=== PATIENT | female | born 1950 | race Caucasian/White ===

== ENCOUNTER 2017-07-11 10:42 | Emergency (ER) | payer MEDICARE ==
[2017-07-11 10:51] VITALS: BMI 26.5
[2017-07-11 10:52] VITALS: RESP 18; TEMP 98.4
[2017-07-11] MEDS ORDERED: Oxycodone/Acetaminophen 5/325 mg Tab PO STA (11:59)
--- NOTE | 2017-07-11 11:59 | ED PDOC ---
HPI: Back Time Seen by Provider: 07/11/17 11:07 Chief Complaint (Nursing): Back Pain Chief Complaint (Provider): Back Pain History Per: Patient Additional Complaint(s): 67 yo female, PMH of HTN and DM, presents to ED for evaluation of headache, and neck pain neck that radiates into her shoulder. Pt states a ceiling tile fell on her head monday and pain increased since then. Pt taking Tylenol with minimal relief. Past Medical History Reviewed: Nursing Documentation, Vital Signs Vital Signs: Last Vital Signs Temp 98.4 F 07/11/17 10:51 Pulse 90 07/11/17 10:51 Resp 18 07/11/17 10:51 BP 146/75 07/11/17 10:51 Pulse Ox 96 07/11/17 10:51 - Medical History PMH: Asthma, COPD, HTN - Family History Family History: States: Unknown Family Hx - Living Arrangements Living Arrangements: With Family - Social History Current smoker - smoking cessation education provided: No Alcohol: None Drugs: Denies - Immunization History Hx Tetanus Toxoid Vaccination: No Hx Influenza Vaccination: No Hx Pneumococcal Vaccination: No - Home Medications Home Medications: Ambulatory Orders Medication Instructions Recorded MetFORMIN [glucoPHAGE] 500 mg PO DAILY 07/05/15 Indomethacin [Indocin] 50 mg PO Q8 PRN #30 cap 07/02/17 Metoprolol Succinate [Toprol XL] 25 mg PO DAILY 07/02/17 Cyclobenzaprine [Cyclobenzaprine 10 mg PO TID #20 tab 07/11/17 HCl] Ibuprofen [Motrin] 600 mg PO Q6 #20 tab 07/11/17 - Allergies Allergies/Adverse Reactions: Allergies Allergy/AdvReac Type Severity Reaction Status Date / Time No Known Allergies Allergy Verified 07/02/17 18:50 Review of Systems ROS Statement: Except As Marked, All Systems Reviewed And Found Negative Musculoskeletal: Positive for: Neck Pain Neurological: Positive for: Headache Physical Exam - Reviewed Nursing Documentation Reviewed: Yes Vital Signs Reviewed: Yes - Physical Exam Appears: Positive for: Well, Non-toxic, No Acute Distress Head Exam: Positive for: ATRAUMATIC, NORMAL INSPECTION, NORMOCEPHALIC Skin: Positive for: Normal Color, Warm, DRY Eye Exam: Positive for: EOMI, Normal appearance, PERRL ENT: Positive for: Normal ENT Inspection Neck: Positive for: Normal, Painless ROM Cardiovascular/Chest: Positive for: Regular Rate, Rhythm Respiratory: Positive for: CNT, Normal Breath Sounds Gastrointestinal/Abdominal: Positive for: Normal Exam, Bowel Sounds, Soft Back: Positive for: Normal Inspection Extremity: Positive for: Normal ROM Neurologic/Psych: Positive for: Alert, Oriented - ECG O2 Sat by Pulse Oximetry: 96 Medical Decision Making Medical Decision Making: medicated with percocet PO Head IMPRESSION: No acute intracranial abnormality. Mild chronic microangiopathic changes and mild age-related global parenchymal volume loss. Neck IMPRESSION: 1. No acute fracture or traumatic anterior listhesis. 2. Mild multilevel degenerative disc disease, worse at C5-6 with mild spinal canal stenosis. 3. Scattered 2-3 mm peripheral nodules in the visualized upper lobes. These may be post inflammatory in etiology however CT scan of the thorax without intravenous contrast on a nonemergent basis is recommended for complete evaluation of the lungs. Pt educated on results and demonstrated full understanding. reports feeling better on re-eval, stable for discharge Disposition - Clinical Impression Clinical Impression: Headache, Cervical strain - Patient ED Disposition Is Patient to be Admitted: No - Disposition Disposition: Routine/Home Disposition Time: 14:28 Condition: STABLE Prescriptions: Cyclobenzaprine [Cyclobenzaprine HCl] 10 mg PO TID #20 tab Ibuprofen [Motrin] 600 mg PO Q6 #20 tab Instructions: Cervical Strain (DC), Acute Headache (DC) Forms: [employer] (Ecuadorean)
--- NOTE | 2017-07-11 13:06 | CT ---
PROCEDURE: CT HEAD WITHOUT CONTRAST. HISTORY: head injury 2 days ago COMPARISON: None available. TECHNIQUE: Axial computed tomography images were obtained through the head/brain without intravenous contrast. Radiation dose: Total exam DLP = 793.15 mGy-cm. This CT exam was performed using one or more of the following dose reduction techniques: Automated exposure control, adjustment of the mA and/or kV according to patient size, and/or use of iterative reconstruction technique. FINDINGS: HEMORRHAGE: No intracranial hemorrhage. BRAIN: Iyer-white matter differentiation is preserved. There are mild chronic microangiopathic changes. There is no mass, mass effect or abnormal extra-axial fluid collection. VENTRICLES: There is mild age-related global parenchymal volume loss and proportionate enlargement of the ventricles and cortical sulci. CALVARIUM: There is no calvarial fracture or extracranial soft tissue swelling. PARANASAL SINUSES: Predominantly clear. MASTOID AIR CELLS: Predominantly clear. OTHER FINDINGS: None. IMPRESSION: No acute intracranial abnormality. Mild chronic microangiopathic changes and mild age-related global parenchymal volume loss.
--- NOTE | 2017-07-11 13:14 | CT ---
PROCEDURE: CT Cervical Spine without contrast HISTORY: Head injury COMPARISON: None available. TECHNIQUE: Axial computed tomography images were obtained of the cervical spine without the use of intravenous contrast. Coronal and sagittal reformatted images were created and reviewed. Radiation dose: Total exam DLP = 515.27 mGy-cm. This CT exam was performed using one or more of the following dose reduction techniques: Automated exposure control, adjustment of the mA and/or kV according to patient size, and/or use of iterative reconstruction technique. FINDINGS: VERTEBRAE: There is reversal of normal cervical lordosis with moderate cervical kyphosis centered at C5-6. There is 4 mm degenerative anterior listhesis of C4 on C5. Vertebral height is normal. There is no acute fracture or traumatic anterior listhesis. The craniocervical junction is normal. There is mild degenerative osteoarthrosis at the atlantoaxial joint. DISCS/SPINAL CANAL/NEURAL FORAMINA: There is multilevel degenerative disc disease due to combination of disc osteophyte complexes, uncovertebral joint hypertrophy and multilevel facet arthropathy, worse at C5-6 with mild bilateral neural foraminal stenosis and mild spinal canal stenosis. Discs heights are grossly preserved. PARASPINAL SOFT TISSUES: There is no prevertebral soft tissue thickening. The paraspinous soft tissues are normal. OTHER FINDINGS: There are scattered 2-3 mm peripheral nodules in the visualized upper lobes. No apical pneumothorax. IMPRESSION: 1. No acute fracture or traumatic anterior listhesis. 2. Mild multilevel degenerative disc disease, worse at C5-6 with mild spinal canal stenosis. 3. Scattered 2-3 mm peripheral nodules in the visualized upper lobes. These may be post inflammatory in etiology however CT scan of the thorax without intravenous contrast on a nonemergent basis is recommended for complete evaluation of the lungs.
[2017-07-11 14:47] VITALS: BP 129/78; PULSE 82; O2SAT 99
== END 2017-07-11 14:47 | disposition home or self-care (01) ==
LOC: H.ER 10:42
DX: R51 Headache (principal); S16.1XXA Strain of muscle, fascia and tendon at neck level, initial encounter; W22.8XXA Striking against or struck by other objects, initial encounter; Y92.89 Other specified places as the place of occurrence of the external cause; Z79.84 Long term (current) use of oral hypoglycemic drugs

== ENCOUNTER 2017-08-19 09:48 | Emergency (ER) | payer MEDICARE ==
[2017-08-19 09:50] VITALS: BMI 26.4
[2017-08-19 09:53] VITALS: TEMP 98.5
[2017-08-19] MEDS ORDERED: Albuterol-Ipratrop 3 mg / 0.5 (3 ml) UD INH STA (10:05)
[2017-08-19] MEDS ORDERED: Albuterol-Ipratrop 3 mg / 0.5 (3 ml) UD ONE (10:26)
[2017-08-19 11:31] VITALS: O2SAT 98
--- NOTE | 2017-08-19 12:01 | CARD ---
APPROVED REPORT EKG Measurement Heart [id number] <Conclusion> Normal sinus rhythm Normal ECG
--- NOTE | 2017-08-19 12:13 | ED PDOC ---
HPI: Hypertension/Hypotension Time Seen by Provider: 08/19/17 10:01 Chief Complaint (Nursing): High Blood Pressure Chief Complaint (Provider): High Blood Pressure History Per: Patient History/Exam Limitations: no limitations Onset/Duration Of Symptoms: Days (x1) Current Symptoms Are (Timing): Still Present Additional Complaint(s): Giovanna Prado is a 67 year old female with previous medical history of asthma, hypertension and COPD, who presents to the emergency department with a complaint of high blood pressure associated with bilateral eye puffiness, cough and wheezing ongoing since this morning. Denied any fever, chills, chest pain, headache, or shortness of breath. Patient stated she is currently placed on Medrol Dose Pack and took her usual dosage of Metoprolol 25mg today. Past Medical History Reviewed: Historical Data, Nursing Documentation, Vital Signs Vital Signs: Last Vital Signs Temp 98.5 F 08/19/17 09:52 Pulse 78 08/19/17 11:31 Resp 17 08/19/17 11:31 BP 123/76 08/19/17 11:31 Pulse Ox 98 08/19/17 11:31 - Medical History PMH: Asthma, COPD, HTN - Surgical History Surgical History: No Surg Hx - Family History Family History: States: Unknown Family Hx - Social History Current smoker - smoking cessation education provided: No Ex-Smoker (has not smoked in the last 12 months): Yes Alcohol: None Drugs: Denies - Immunization History Hx Tetanus Toxoid Vaccination: No Hx Influenza Vaccination: No Hx Pneumococcal Vaccination: No - Home Medications Home Medications: Ambulatory Orders Medication Instructions Recorded MetFORMIN [glucoPHAGE] 500 mg PO DAILY 07/05/15 Indomethacin [Indocin] 50 mg PO Q8 PRN #30 cap 07/02/17 Metoprolol Succinate [Toprol XL] 25 mg PO DAILY 07/02/17 Cyclobenzaprine [Cyclobenzaprine 10 mg PO TID #20 tab 07/11/17 HCl] Ibuprofen [Motrin] 600 mg PO Q6 #20 tab 07/11/17 - Allergies Allergies/Adverse Reactions: Allergies Allergy/AdvReac Type Severity Reaction Status Date / Time No Known Allergies Allergy Verified 07/02/17 18:50 Review of Systems ROS Statement: Except As Marked, All Systems Reviewed And Found Negative Constitutional: Negative for: Fever, Chills Eyes: Positive for: Other (bilateral eye "puffiness") Cardiovascular: Negative for: Chest Pain Respiratory: Positive for: Cough, Wheezing. Negative for: Shortness of Breath Neurological: Negative for: Headache Physical Exam - Reviewed Nursing Documentation Reviewed: Yes Vital Signs Reviewed: Yes - Physical Exam Appears: Positive for: Well, Non-toxic, No Acute Distress Head Exam: Positive for: ATRAUMATIC, NORMAL INSPECTION, NORMOCEPHALIC Skin: Positive for: Normal Color Eye Exam: Positive for: Normal appearance, EOMI, PERRL, Periorbital swelling ( trace eyelid edema). Negative for: Periorbital tenderness, Conjunctival injection, Scleral icterus, Other ENT: Positive for: Normal ENT Inspection Neck: Positive for: Normal Cardiovascular/Chest: Positive for: Regular Rate, Rhythm. Negative for: Chest Non Tender Respiratory: Positive for: Wheezing (bilaterally), Other (good airway entry). Negative for: Normal Breath Sounds, Respiratory Distress Gastrointestinal/Abdominal: Positive for: Normal Exam, Bowel Sounds, Soft. Negative for: Tenderness Extremity: Positive for: Normal ROM. Negative for: Tenderness, Pedal Edema, Deformity Neurologic/Psych: Positive for: Alert (x3), Oriented - ECG O2 Sat by Pulse Oximetry: 98 (RA) Pulse Ox Interpretation: Normal Medical Decision Making Medical Decision Making: Initial Impression: Hypertension possibly related to corticosteroids use for asthma Initial Plan: * EKG * Catapres 0.2mg PO * Duoneb 3ml INH * Peak flow pre/post TX BP normalized in ED [place] better s/p duoneb DC from ED, followup PMD Asymptomatic on discharge. Scribe Attestation: Documented by Melisa Coates, acting as a scribe for Anastacio Willett III, DO. Provider Scribe Attestation: All medical record entries made by the Scribe were at my direction and personally dictated by me. I have reviewed the chart and agree that the record accurately reflects my personal performance of the history, physical exam, medical decision making, and the department course for this patient. I have also personally directed, reviewed, and agree with the discharge instructions and disposition. Disposition - Clinical Impression Clinical Impression: Asthma exacerbation, Hypertension - Patient ED Disposition Is Patient to be Admitted: No Counseled Patient/Family Regarding: Studies Performed, Diagnosis, Need For Followup, Rx Given - Disposition Referrals: Thiago Camargo MD [Medical Doctor] - Disposition: Routine/Home Disposition Time: 12:01 Condition: STABLE Additional Instructions: Take medications as prior prescibed. Return to ER for any worse or new symptoms. Avoid salt in diet. Instructions: Asthma (ED), Hypertension (ED) Forms: [employer] (Citizen Of [place])
[2017-08-19 12:18] VITALS: BP 123/76; PULSE 73; RESP 18
== END 2017-08-19 12:19 | disposition home or self-care (01) ==
LOC: H.ER 09:48
DX: J45.901 Unspecified asthma with (acute) exacerbation (principal); I10 Essential (primary) hypertension

== ENCOUNTER 2017-08-24 11:47 | Observation (INO) | payer MEDICARE ==
[2017-08-24 11:47] VITALS: BMI 26.4
[2017-08-24 13:08] LABS: BASO # 0.1 K/uL (0.0-0.2); BASO % 0.9 % (0.0-2.0); EOS # 0.4 K/uL (0.0-0.7); EOS % 2.8 % (0.0-4.0); HEMATOCRIT 41.1 % (34.0-47.0); LYMPH # 1.8 K/uL (1.0-4.3); LYMPH % 12.7 % (20.0-40.0); MEAN CELL VOLUME 87.1 fl (81.0-99.0); MEAN CORPUSCULAR HEMOGLOBIN 28.6 pg (27.0-31.0); MEAN CORPUSCULAR HGB CONC 32.9 g/dL (33.0-37.0); MEAN PLATELET VOLUME 8.9 fl (7.2-11.7); MONO # 1.1 K/uL (0.0-0.8); MONO % 7.7 % (0.0-10.0); NEUT # 10.5 K/uL (1.8-7.0); NEUT % 75.9 % (50.0-75.0); NRBC % 0.2 % (0.0-0.0); RED CELL DISTRIBUTION WIDTH 14.8 % (11.5-14.5); WHITE BLOOD COUNT 13.9 K/uL (4.8-10.8)
[2017-08-24 13:14] LABS: ALB/GLOB RATIO 1.5 (1.0-2.1); ALKALINE PHOSPHATASE 114 U/L (38-126); ALT/SGPT 34 U/L (9-52); AST/SGOT 30 U/L (14-36); BILIRUBIN,TOTAL 0.5 mg/dl (0.2-1.3); BLOOD UREA NITROGEN 33 mg/dl (7-17); CALCIUM 9.7 mg/dL (8.4-10.2); CARBON DIOXIDE 25 mmol/L (22-30); CHLORIDE 103 mmol/L (98-107); GFR AFRICAN-AMERICAN > 60; GLUCOSE,RANDOM 99 mg/dL (65-105); MAGNESIUM 1.9 MG/DL (1.6-2.3); PHOSPHOROUS 3.6 mg/dl (2.5-4.5); POTASSIUM 4.3 MMOL/L (3.6-5.0); SODIUM 143 mmol/l (132-148); TOTAL PROTEIN 7.6 G/DL (6.3-8.2)
[2017-08-24 13:17] LABS: PARTIAL THROMBOPLASTIN TIME 30.6 Seconds (25.6-37.1)
[2017-08-24] MEDS ORDERED: Albuterol 0.083% Inhal Sol (2.5 mg/3 mL) UD IH PRN (17:29)
[2017-08-24] MEDS: Insulin Regular 100 units/ml SC SCH (23:09)
[2017-08-25 05:05] LABS: HEMATOCRIT 41.6 % (34.0-47.0); MEAN CELL VOLUME 88.5 fl (81.0-99.0); MEAN CORPUSCULAR HEMOGLOBIN 28.7 pg (27.0-31.0); MEAN CORPUSCULAR HGB CONC 32.4 g/dL (33.0-37.0); RED CELL DISTRIBUTION WIDTH 14.7 % (11.5-14.5); WHITE BLOOD COUNT 10.8 K/uL (4.8-10.8)
[2017-08-25 05:27] LABS: ALB/GLOB RATIO 1.4 (1.0-2.1); ALKALINE PHOSPHATASE 125 U/L (38-126); ALT/SGPT 28 U/L (9-52); AST/SGOT 20 U/L (14-36); BILIRUBIN,TOTAL 0.3 mg/dl (0.2-1.3); BLOOD UREA NITROGEN 33 mg/dl (7-17); CALCIUM 9.9 mg/dL (8.4-10.2); CARBON DIOXIDE 28 mmol/L (22-30); CHLORIDE 102 mmol/L (98-107); CHOLESTEROL 180 mg/dL (0-199); GFR AFRICAN-AMERICAN > 60; GLUCOSE,RANDOM 163 mg/dL (65-105); POTASSIUM 4.9 MMOL/L (3.6-5.0); SODIUM 144 mmol/l (132-148); TOTAL PROTEIN 7.4 G/DL (6.3-8.2)
[2017-08-25 05:57] LABS: THYROID STIMULATING HORMONE 1.61 mIU/ML (0.46-4.68)
[2017-08-25 08:22] VITALS: RESP 20
[2017-08-25] MEDS: Enoxaparin 40 mg Syringe SC SCH ×2 (08:57→09:01)
[2017-08-25] MEDS: Insulin Regular 100 units/ml SC SCH ×3 (08:58→12:15)
[2017-08-25] MEDS ORDERED: Metoprolol Succinate 25 mg XL Tab PO SCH (09:00)
[2017-08-25] MEDS: Oxycodone/Acetaminophen 5/325 mg Tab PO PRN ×2 (10:21→15:25)
[2017-08-25 13:12] VITALS: BP 128/76; PULSE 88; TEMP 97.4; O2SAT 100
[2017-08-25] MEDS ORDERED: Oxycodone/Acetaminophen 5/325 mg Tab PO ONE (15:18)
== END 2017-08-25 15:40 | disposition home or self-care (01) ==
LOC: H.ER 11:47 → H.ERHOLD 13:42 → H.TEL 15:32
PROVIDERS: ADMIT Internal Medicine; ATTEND Internal Medicine
DX: R55 Syncope and collapse (principal); S06.0X0A Concussion without loss of consciousness, initial encounter; W18.30XA Fall on same level, unspecified, initial encounter; Y92.410 Unspecified street and highway as the place of occurrence of the external cause; Y93.01 Activity, walking, marching and hiking; E11.9 Type 2 diabetes mellitus without complications; J44.9 Chronic obstructive pulmonary disease, unspecified; J45.909 Unspecified asthma, uncomplicated; S00.03XA Contusion of scalp, initial encounter; M25.562 Pain in left knee
CPT/HCPCS: 36415; 70450; 71010; 80053; 80061; 82948; 83735; 84100; 84443; 84484; 84550; 85025; 85027; 85610; 85651; 85730; 93005; 93306; 99285; G0378

== ENCOUNTER 2017-12-05 23:13 | Emergency (ER) | payer MEDICARE ==
[2017-12-05 23:14] VITALS: BMI 26.4
[2017-12-06 00:03] VITALS: RESP 18; TEMP 97.3
[2017-12-06] MEDS ORDERED: Magnesium Sulfate 2 gm/50 ml 2 GM/50 ML BAG IV STA (00:48)
[2017-12-06] MEDS ORDERED: Albuterol-Ipratrop 3 mg / 0.5 (3 ml) UD INH STA (00:48)
[2017-12-06 01:20] LABS: BASO # 0.1 K/uL (0.0-0.2); EOS # 0.6 K/uL (0.0-0.7); EOS % 7.8 % (0.0-4.0); HEMOGLOBIN 11.8 g/dL (12.0-16.0); LYMPH # 1.7 K/uL (1.0-4.3); LYMPH % 22.1 % (20.0-40.0); MEAN CELL VOLUME 85.8 fl (81.0-99.0); MEAN CORPUSCULAR HEMOGLOBIN 27.8 pg (27.0-31.0); MEAN CORPUSCULAR HGB CONC 32.4 g/dL (33.0-37.0); MONO # 0.6 K/uL (0.0-0.8); MONO % 7.8 % (0.0-10.0); NEUT # 4.8 K/uL (1.8-7.0); NEUT % 61.3 % (50.0-75.0); RBC 4.25 Mil/uL (3.80-5.20); RED CELL DISTRIBUTION WIDTH 14.7 % (11.5-14.5); WHITE BLOOD COUNT 7.8 K/uL (4.8-10.8)
[2017-12-06] MEDS ORDERED: Albuterol-Ipratrop 3 mg / 0.5 (3 ml) UD ONE (01:20)
--- NOTE | 2017-12-06 01:26 | ED PDOC ---
HPI: Hypertension/Hypotension Time Seen by Provider: 12/06/17 00:31 Chief Complaint (Nursing): High Blood Pressure Chief Complaint (Provider): High Blood Pressure History Per: Patient History/Exam Limitations: no limitations Onset/Duration Of Symptoms: Days (x today) Current Symptoms Are (Timing): Still Present Additional Complaint(s): Giovanna is a 67 year old, female with a history of diabetes, asthma and hypertension, who presents to the emergency department with persistent elevated blood pressure. Patient states she took lopressor 25 this morning. Patient states she saw her PCP (Dr. Nicole) and was told dosage should be changed. Patient states this evening her blood pressure was elevated, prompting to take 2nd dose of lopressor. Report at 21:00, her blood pressure reading was 180 systolic. Denies associated nausea, vomiting, chest pain or coughing. Reports asthma more active with mild shortness of breath. Admits to using albuterol pump. PMD: Jackson Nicole Past Medical History Reviewed: Historical Data, Nursing Documentation, Vital Signs Vital Signs: Last Vital Signs Temp 97.3 F L 12/05/17 23:55 Pulse 83 12/06/17 01:09 Resp 18 12/06/17 01:09 BP 149/74 12/06/17 01:09 Pulse Ox 98 12/06/17 01:09 - Medical History PMH: Asthma, Bronchitis, COPD, HTN, Chronic Kidney Disease Denies: HIV - Surgical History Surgical History: No Surg Hx - Family History Family History: States: Unknown Family Hx - Social History Current smoker - smoking cessation education provided: No Alcohol: None Drugs: Denies - Immunization History Hx Tetanus Toxoid Vaccination: No Hx Influenza Vaccination: No Hx Pneumococcal Vaccination: No - Home Medications Home Medications: Ambulatory Orders Medication Instructions Recorded MetFORMIN [glucoPHAGE] 500 mg PO DAILY 07/05/15 Metoprolol Succinate [Toprol XL] 25 mg PO DAILY 07/02/17 Albuterol 0.083% [Albuterol 0.083% 3 ml IH Q6H PRN 08/24/17 Inhal Bianca (2.5 mg/3 ml) UD] Aspirin [Ecotrin] 81 mg PO DAILY 08/24/17 Promethazine DM [Phenergan DM 5 ml PO Q8H PRN 08/24/17 Syrup] - Allergies Allergies/Adverse Reactions: Allergies Allergy/AdvReac Type Severity Reaction Status Date / Time No Known Allergies Allergy Verified 12/05/17 23:55 Review of Systems ROS Statement: Except As Marked, All Systems Reviewed And Found Negative Cardiovascular: Negative for: Chest Pain Respiratory: Positive for: Shortness of Breath (Mild). Negative for: Cough Gastrointestinal: Negative for: Nausea, Vomiting Physical Exam - Reviewed Nursing Documentation Reviewed: Yes Vital Signs Reviewed: Yes - Physical Exam Appears: Positive for: Non-toxic Head Exam: Positive for: ATRAUMATIC, NORMAL INSPECTION, NORMOCEPHALIC Skin: Positive for: Normal Color, Warm, Dry Eye Exam: Positive for: Normal appearance ENT: Positive for: Normal ENT Inspection Neck: Positive for: Normal Cardiovascular/Chest: Positive for: Regular Rate, Rhythm Respiratory: Positive for: Wheezing (Bilateral Expiratory) Gastrointestinal/Abdominal: Positive for: Normal Exam Back: Positive for: Normal Inspection Extremity: Positive for: Normal ROM. Negative for: Deformity Neurologic/Psych: Positive for: Alert, Oriented - Laboratory Results Result Diagrams: 12/06/17 01:13 12/06/17 01:13 - ECG O2 Sat by Pulse Oximetry: 98 (RA) Pulse Ox Interpretation: Normal Medical Decision Making Medical Decision Making: Time: 00:37 Impression: 67 year old female with known hypertension and wheezing with known asthma Plan: - EKG - B-Type Natriuretic Peptide - CMP - Troponin I - CBC Time: 00:48 - Duoneb 3 mg/0.5 mg (3 ml) UD - Magnesium SUlfate 2 gm /50 ml Water - SOLU-medrol 125 mg IVP - Peak Flow Pre/Post Treatment - Influenza A B Scribe Attestation: Documented by Gerard Mcmahon, acting as a scribe for Noel Osman MD Provider Scribe Attestation: All medical record entries made by the Scribe were at my direction and personally dictated by me. I have reviewed the chart and agree that the record accurately reflects my personal performance of the history, physical exam, medical decision making, and the department course for this patient. I have also personally directed, reviewed, and agree with the discharge instructions and disposition. Disposition - Clinical Impression Clinical Impression: Asthma, Hypertension - Disposition Referrals: Jackson Nicole MD [Primary Care Provider] - Disposition: Routine/Home Disposition Time: 02:00 Condition: STABLE Instructions: Asthma (ED), Hypertension (ED) Forms: [employer] (Sudanese)
[2017-12-06 01:29] LABS: ALB/GLOB RATIO 1.4 (1.0-2.1); ALBUMIN 4.4 g/dL (3.5-5.0); ALT/SGPT 34 U/L (9-52); AST/SGOT 28 U/L (14-36); BLOOD UREA NITROGEN 19 mg/dl (7-17); CALCIUM 9.9 mg/dL (8.4-10.2); GFR AFRICAN-AMERICAN > 60; GFR NON-AFRICAN AMERICAN 55
[2017-12-06 01:40] LABS: B-TYPE NATRIURETIC PEPTIDE 221 pg/ml (0-900)
[2017-12-06 02:35] VITALS: BP 133/53; PULSE 84
[2017-12-06 04:41] VITALS: O2SAT 98
--- NOTE | 2017-12-06 16:30 | CARD ---
APPROVED REPORT EKG Measurement Heart [id number] <Conclusion> Normal sinus rhythm Normal ECG
== END 2017-12-06 02:25 | disposition home or self-care (01) ==
LOC: H.ER 23:13
DX: I10 Essential (primary) hypertension (principal); J45.909 Unspecified asthma, uncomplicated; E11.22 Type 2 diabetes mellitus with diabetic chronic kidney disease; N18.9 Chronic kidney disease, unspecified; J44.9 Chronic obstructive pulmonary disease, unspecified
CPT/HCPCS: 80053; 82948; 83880; 84484; 85025; 87804; 93005; 96374; 99285; J2930

== ENCOUNTER 2017-12-24 21:52 | Emergency (ER) | payer MEDICARE ==
[2017-12-24 21:52] VITALS: BMI 26.4
[2017-12-24 22:12] VITALS: BP 156/83; PULSE 96; RESP 16; TEMP 98.5; O2SAT 98
--- NOTE | 2017-12-24 22:52 | ED PDOC ---
HPI: General Adult Time Seen by Provider: 12/24/17 22:13 Chief Complaint (Nursing): Lower Extremity Problem/Injury History Per: Patient Additional Complaint(s): Pt. states today she developed atraumatic pain in the L ankle with swelling and redness. Pt. states she also developed swelling and redness to the L 4th and 5th toes. States that she's had the symptoms in the ankle in the past and was dx with arthritis and gout. She took Indocin three times today without any relief. Further states swelling and redness to toes are new. Denies numbness, tingling, trauma, fever, discharge, calf pain. Past Medical History Reviewed: Historical Data, Nursing Documentation, Vital Signs Vital Signs: Last Vital Signs Temp 98.5 F 12/24/17 22:08 Pulse 96 H 12/24/17 22:08 Resp 16 12/24/17 22:08 BP 156/83 H 12/24/17 22:08 Pulse Ox 98 12/24/17 23:56 - Medical History PMH: Asthma, Bronchitis, COPD, HTN, Chronic Kidney Disease Denies: HIV - Family History Family History: States: No Known Family Hx - Immunization History Hx Tetanus Toxoid Vaccination: No Hx Influenza Vaccination: No Hx Pneumococcal Vaccination: No - Home Medications Home Medications: Ambulatory Orders Medication Instructions Recorded MetFORMIN [glucoPHAGE] 500 mg PO DAILY 07/05/15 Metoprolol Succinate [Toprol XL] 25 mg PO DAILY 07/02/17 Albuterol 0.083% [Albuterol 0.083% 3 ml IH Q6H PRN 08/24/17 Inhal Bianca (2.5 mg/3 ml) UD] Aspirin [Ecotrin] 81 mg PO DAILY 08/24/17 Promethazine DM [Phenergan DM 5 ml PO Q8H PRN 08/24/17 Syrup] Cephalexin [cephalexin] 500 mg PO Q6 #28 cap 12/25/17 Methylprednisolone [Medrol Dose 4 mg PO DAILY #21 mg 12/25/17 Pack (21 tabs)] - Allergies Allergies/Adverse Reactions: Allergies Allergy/AdvReac Type Severity Reaction Status Date / Time No Known Allergies Allergy Verified 12/05/17 23:55 Review of Systems ROS Statement: Except As Marked, All Systems Reviewed And Found Negative Musculoskeletal: Positive for: Foot Pain Physical Exam - Physical Exam Appears: Positive for: Well, Non-toxic, No Acute Distress Skin: Positive for: Normal Color, Warm. Negative for: Rash Eye Exam: Positive for: Normal appearance Pulses-Dorsalis Pedis (L): 2+ Extremity: Positive for: Other (LLE: L ankle with moderate erythema and faint erythema but no tenderness or break in skin integrity; L 4th and 5th toes with erythema and swelling but no break in skin integrity or interdigital maceration) . Negative for: Calf Tenderness (b/l) Neurologic/Psych: Positive for: Alert, Oriented - Laboratory Results Result Diagrams: 12/24/17 23:32 12/24/17 23:32 - ECG O2 Sat by Pulse Oximetry: 98 - Radiology X-Ray: Interpreted by Me (L ankle/foot x-ray) X-Ray Interpretation: No Acute Disease - Progress ED Course And Treament: Labs ordered. Toradol 30mg IV, L ankle/foot x-ray ordered. 2330 Pt. also c/o cough x 2 weeks with intermittent wheezing. States she has been using her albuterol pump with good transient relief. Denies chest pain, hemoptysis, palpitations. Lungs with b/l expiratory wheezing. No respiratory distress. Albuterol neb x 1, solu-medrol 62.5mg IV ordered. 0017 1.3 Cr Lab results d/w Dr. Chao who recommends Medrol dose pack for asthma and gout. On re-evaluation, pain has improved and wheezing has resolved. Lungs clear b/l. Disposition - Clinical Impression Clinical Impression: Gout, Bronchospasm, acute, Renal insufficiency - Patient ED Disposition Is Patient to be Admitted: No - Disposition Referrals: Podiatry Clinic [Outside] Disposition: Routine/Home Disposition Time: 00:19 Condition: IMPROVED Prescriptions: Cephalexin [cephalexin] 500 mg PO Q6 #28 cap Methylprednisolone [Medrol Dose Pack (21 tabs)] 4 mg PO DAILY #21 mg Instructions: Bronchospasm (ED), Gout (ED) Forms: [employer] (Sudanese)
[2017-12-24] MEDS ORDERED: Albuterol 0.083% Inhal Sol (2.5 mg/3 mL) UD INH STA (23:31)
[2017-12-24 23:37] LABS: BASO # 0.1 K/uL (0.0-0.2); BASO % 0.9 % (0.0-2.0); EOS # 0.4 K/uL (0.0-0.7); EOS % 5.1 % (0.0-4.0); HEMOGLOBIN 11.9 g/dL (12.0-16.0); LYMPH # 1.8 K/uL (1.0-4.3); MEAN CELL VOLUME 85.3 fl (81.0-99.0); MEAN CORPUSCULAR HEMOGLOBIN 27.8 pg (27.0-31.0); MEAN CORPUSCULAR HGB CONC 32.6 g/dL (33.0-37.0); MEAN PLATELET VOLUME 8.8 fl (7.2-11.7); MONO # 0.7 K/uL (0.0-0.8); MONO % 7.7 % (0.0-10.0); NEUT # 5.8 K/uL (1.8-7.0); NEUT % 66.3 % (50.0-75.0); RBC 4.28 Mil/uL (3.80-5.20); RED CELL DISTRIBUTION WIDTH 14.5 % (11.5-14.5); WHITE BLOOD COUNT 8.8 K/uL (4.8-10.8)
[2017-12-24] MEDS ORDERED: Albuterol-Ipratrop 3 mg / 0.5 (3 ml) UD ONE (23:38)
[2017-12-25 00:11] LABS: ALB/GLOB RATIO 1.3 (1.0-2.1); ALBUMIN 4.4 g/dL (3.5-5.0); CALCIUM 9.7 mg/dL (8.4-10.2); URIC ACID 9.9 mg/Dl (2.2-7.5)
--- NOTE | 2017-12-25 09:05 | RAD ---
HISTORY: cough COMPARISON: Comparison chest dated 08/24/2017 TECHNIQUE: Chest PA and lateral FINDINGS: LUNGS: Suspect minor biapical pleural thickening. No focal consolidation. PLEURA: No significant pleural effusion identified. No pneumothorax apparent. CARDIOVASCULAR: Normal. OSSEOUS STRUCTURES: Minor multilevel degenerative spondylosis of the thoracic spine. VISUALIZED UPPER ABDOMEN: Normal. OTHER FINDINGS: None. IMPRESSION: Minor biapical pleural thickening. No focal consolidation.
--- NOTE | 2017-12-25 09:07 | RAD ---
PROCEDURE: Left Ankle Radiographs. HISTORY: pain COMPARISON: None FINDINGS: BONES: No evidence of acute displaced fracture nor dislocation. Osseous structures - talar dome appear intact. . Small plantar and posterior calcaneal surface enthesophytes. JOINTS: Minor osteoarthritis tibiotalar articulation with small marginal anterior distal talar osteophyte formation. . Ankle mortise maintained. SOFT TISSUES: There is mild bilateral soft tissue swelling nonspecific. . There may also be a small joint effusion as well. OTHER FINDINGS: None. IMPRESSION: No evidence of acute displaced fracture nor dislocation. Bilateral soft tissue swelling with minor degenerative osteoarthritis. Suspect small joint effusion.
--- NOTE | 2017-12-25 12:56 | RAD ---
PROCEDURE: Left Foot Radiographs. HISTORY: Pain. No history of recent/ related trauma provided Relevant medical history: Gout COMPARISON: None. FINDINGS: BONES: No acute fractures. Evidence of prior osteotomy 5th digit. JOINTS: Normal. SOFT TISSUES: Normal. OTHER FINDINGS: None. IMPRESSION: Normal left foot radiographNo acute findings related to/accounting for the clinical presentation. Techs.
== END 2017-12-25 00:20 | disposition home or self-care (01) ==
LOC: H.ER 21:52
DX: M10.9 Gout, unspecified (principal); J98.01 Acute bronchospasm; N28.9 Disorder of kidney and ureter, unspecified; I12.9 Hypertensive chronic kidney disease with stage 1 through stage 4 chronic kidney disease, or unspecified chronic kidney disease; N18.9 Chronic kidney disease, unspecified; J44.9 Chronic obstructive pulmonary disease, unspecified
CPT/HCPCS: 71046; 73610; 73630; 80053; 84550; 85025; 87040; 96374; 96375; 99283; J1885; J2930

== ENCOUNTER 2018-04-07 20:57 | Emergency (ER) | payer MEDICARE ==
[2018-04-07 20:57] VITALS: BMI 26.4
[2018-04-07 21:04] VITALS: RESP 16
[2018-04-07] MEDS ORDERED: Albuterol-Ipratrop 3 mg / 0.5 (3 ml) UD INH STA (21:24)
--- NOTE | 2018-04-07 21:25 | ED PDOC ---
HPI: Hypertension/Hypotension Additional Complaint(s): 67 year old, female with a history of diabetes, asthma and hypertension, who presents to the emergency department with persistent elevated blood pressure. Patient states she saw her PCP (Dr. Nicole) and she started taking medrol due to asthma exacerbation and today in the morning she started feeling pressure in her neck, itching eyes and red face. Patient states this evening her blood pressure was elevated at home. Also reports cough and mild sob. Denies associated nausea, vomiting, chest pain, headache, blurred vision or epigastric pain. Admits to using albuterol pump. PCP: [facility] Pulmonology: Dr Nicole. <Reji Messer - Last Filed: 04/07/18 23:23> Chief Complaint (Provider): high blood pressure History Per: Patient <Tete Will - Last Filed: 04/09/18 14:29> Time Seen by Provider: 04/07/18 22:00 Chief Complaint (Nursing): High Blood Pressure Supervising Attending Note - Supervising Attending Note The Documented history was done by the: Physician Crossing Gateman, Attending Physician The documented physical exam was done by the: Physician Crossing Gateman, Attending Physician - Attestation: I have personally seen and examined this patient.: Yes I have fully participated in the care of the patient.: Yes I have reviewed all pertinent clinical information, including history, physical exam and plan: Yes <Tete Will - Last Filed: 04/09/18 14:29> Past Medical History Vital Signs: Last Vital Signs Temp 97.6 F 04/07/18 21:01 Pulse 91 H 04/07/18 21:01 Resp 16 04/07/18 21:01 BP 194/78 H 04/07/18 21:01 Pulse Ox 96 04/07/18 21:01 - Medical History PMH: Asthma, Bronchitis, COPD, HTN, Chronic Kidney Disease Denies: HIV - Family History Family History: States: Unknown Family Hx - Immunization History Hx Tetanus Toxoid Vaccination: No Hx Influenza Vaccination: No Hx Pneumococcal Vaccination: No <Reji Messer - Last Filed: 04/07/18 23:23> Vital Signs: Last Vital Signs Temp 98.5 F 04/07/18 23:36 Pulse 87 04/07/18 23:36 Resp 16 04/07/18 23:36 BP 134/79 04/07/18 23:36 Pulse Ox 98 04/07/18 23:36 <Tete Will - Last Filed: 04/09/18 14:29> - Home Medications Home Medications: Ambulatory Orders Medication Instructions Recorded MetFORMIN [glucoPHAGE] 500 mg PO DAILY 07/05/15 Metoprolol Succinate [Toprol XL] 25 mg PO DAILY 07/02/17 Albuterol 0.083% [Albuterol 0.083% 3 ml IH Q6H PRN 08/24/17 Inhal Bianca (2.5 mg/3 ml) UD] Aspirin [Ecotrin] 81 mg PO DAILY 08/24/17 Promethazine DM [Phenergan DM 5 ml PO Q8H PRN 08/24/17 Syrup] Cephalexin [cephalexin] 500 mg PO Q6 #28 cap 12/25/17 Methylprednisolone [Medrol Dose 4 mg PO DAILY #21 mg 12/25/17 Pack (21 tabs)] - Allergies Allergies/Adverse Reactions: Allergies Allergy/AdvReac Type Severity Reaction Status Date / Time No Known Allergies Allergy Verified 04/07/18 20:59 Review of Systems ROS Statement: Except As Marked, All Systems Reviewed And Found Negative <Reji Messer - Last Filed: 04/07/18 23:23> Physical Exam - Reviewed Nursing Documentation Reviewed: Yes Vital Signs Reviewed: Yes - Physical Exam Appears: Positive for: No Acute Distress Head Exam: Positive for: NORMAL INSPECTION Skin: Positive for: Rash (erythema noted over cheeks and forehead, no pruritus) Eye Exam: Positive for: EOMI, PERRL, Periorbital swelling Neck: Positive for: Normal, Painless ROM, Supple Cardiovascular/Chest: Positive for: Regular Rate, Rhythm, Chest Non Tender. Negative for: Edema, Murmur Respiratory: Positive for: Decreased Breath Sounds, Rhonchi, Wheezing Gastrointestinal/Abdominal: Positive for: Normal Exam Extremity: Negative for: Pedal Edema Neurologic/Psych: Positive for: Alert, child care II-XII, Oriented <Reji Messer - Last Filed: 04/07/18 23:23> - Laboratory Results Result Diagrams: 04/07/18 21:55 04/07/18 21:55 - ECG ECG: Positive for: Viewed By Me ECG Rhythm: Positive for: Normal QRS O2 Sat by Pulse Oximetry: 96 - Radiology X-Ray: Viewed By Me X-Ray Interpretation: No Acute Disease - Progress ED Course And Treament: CBC, CMP Troponin, BNP Mg, Phos Blood cx EKG CXR Duoneb Solumedrol 125 mg IV. Reeval. Patient feel better, s/p duoneb x2. CBC/CMP wnl Troponin neg Dispo: d/c home. <Reji Messer - Last Filed: 04/07/18 23:23> - Laboratory Results Result Diagrams: 04/07/18 21:55 04/07/18 21:55 <Tete Will - Last Filed: 04/09/18 14:29> Disposition - Patient ED Disposition Is Patient to be Admitted: No - Disposition Disposition: Routine/Home Disposition Time: 23:24 <Reji Messer - Last Filed: 04/07/18 23:23> <Tete Will - Last Filed: 04/09/18 14:29> - Clinical Impression Clinical Impression: Asthma exacerbation - Disposition Referrals: Jackson Nicole MD [Staff Provider] - (FOLLOW UP WITH DR NICOLE ON MONDAY FOR REEVALUATION) Condition: IMPROVED Additional Instructions: F/U with PCP in 2-3 days Continue Medrol as prescribed ER precautions reviewed. Instructions: Asthma, Adult (DC) Forms: [employer] (Danish) Print Language: GEORGIAN
[2018-04-07] MEDS ORDERED: Albuterol-Ipratrop 3 mg / 0.5 (3 ml) UD ONE ×2 (21:38→22:46)
[2018-04-07 22:11] LABS: ALB/GLOB RATIO 1.1 (1.0-2.1); ALBUMIN 4.5 g/dL (3.5-5.0); ALT/SGPT 36 U/L (9-52); AST/SGOT 21 U/L (14-36); BASO % 0.4 % (0.0-2.0); BLOOD UREA NITROGEN 40 mg/dl (7-17); CALCIUM 9.6 mg/dL (8.4-10.2); EOS % 0.1 % (0.0-4.0); GFR AFRICAN-AMERICAN 54; GFR NON-AFRICAN AMERICAN 45; HEMOGLOBIN 12.6 g/dL (12.0-16.0); LYMPH # 1.4 K/uL (1.0-4.3); LYMPH % 16.5 % (20.0-40.0); MEAN CELL VOLUME 85.6 fl (81.0-99.0); MEAN CORPUSCULAR HEMOGLOBIN 28.7 pg (27.0-31.0); MEAN CORPUSCULAR HGB CONC 33.5 g/dL (33.0-37.0); MEAN PLATELET VOLUME 9.1 fl (7.2-11.7); MONO # 0.6 K/uL (0.0-0.8); MONO % 7.1 % (0.0-10.0); NEUT # 6.6 K/uL (1.8-7.0); NEUT % 75.9 % (50.0-75.0); NRBC % 0.1 % (0.0-0.0); RBC 4.38 Mil/uL (3.80-5.20); RED CELL DISTRIBUTION WIDTH 15.1 % (11.5-14.5); WHITE BLOOD COUNT 8.7 K/uL (4.8-10.8)
[2018-04-07 22:22] LABS: B-TYPE NATRIURETIC PEPTIDE 184 pg/ml (0-900)
[2018-04-07 23:36] VITALS: BP 134/79; PULSE 87; TEMP 98.5; O2SAT 98
--- NOTE | 2018-04-08 15:23 | RAD ---
HISTORY: sob COMPARISON: 12/24/2017 TECHNIQUE: Chest PA and lateral FINDINGS: LUNGS: No active pulmonary disease. PLEURA: No significant pleural effusion identified. No pneumothorax apparent. CARDIOVASCULAR: Normal. OSSEOUS STRUCTURES: No significant abnormalities. VISUALIZED UPPER ABDOMEN: Normal. OTHER FINDINGS: None. IMPRESSION: No active disease.
--- NOTE | 2018-04-09 06:23 | CARD ---
APPROVED REPORT EKG Measurement Heart [id number] <Conclusion> Normal sinus rhythm Normal ECG
== END 2018-04-07 23:37 | disposition home or self-care (01) ==
LOC: H.ER 20:57
DX: J45.901 Unspecified asthma with (acute) exacerbation (principal); I12.9 Hypertensive chronic kidney disease with stage 1 through stage 4 chronic kidney disease, or unspecified chronic kidney disease; E11.22 Type 2 diabetes mellitus with diabetic chronic kidney disease; Z79.84 Long term (current) use of oral hypoglycemic drugs; Z79.82 Long term (current) use of aspirin
CPT/HCPCS: 71046; 80053; 83735; 83880; 84100; 84484; 85025; 87040; 93005; 94640; 96374; 99285; J2930

== ENCOUNTER 2018-07-13 21:49 | Emergency (ER) | payer MEDICARE ==
[2018-07-13 21:50] VITALS: BMI 26.4
[2018-07-13 22:03] VITALS: BP 173/82; PULSE 94; RESP 16; TEMP 98.4; O2SAT 95
--- NOTE | 2018-07-13 22:33 | ED PDOC ---
Lower Extremity Pain/Injury Time Seen by Provider: 07/13/18 22:20 Chief Complaint (Nursing): Lower Extremity Problem/Injury Chief Complaint (Provider): RIGHT KNEE PAIN History Per: Patient (68 Y/O FEMALE H/O DM/HTN/GOUTY ARTHRITIS HERE FOR KNEE PAIN X 2 WEEKS NOT IMPROVING WITH INDOMETHACIN TAKEN X 1 DAY. PATIENT STATES SHE INITIALLY TOOK 1 TABLET INTERMITTENTLY DURING WEEK B/C SHE DID NOT HAVE RX BUT STARTED CONTINUOUSLY YESTERDAY NOTING MINIMAL RELIEF.) Past Medical History Reviewed: Historical Data, Nursing Documentation, Vital Signs Vital Signs: Last Vital Signs Temp 98.4 F 07/13/18 21:59 Pulse 94 H 07/13/18 21:59 Resp 16 07/13/18 21:59 BP 173/82 H 07/13/18 21:59 Pulse Ox 95 07/13/18 21:59 - Medical History PMH: Asthma, Bronchitis, COPD, HTN, Chronic Kidney Disease Denies: HIV - Family History Family History: States: Unknown Family Hx - Immunization History Hx Tetanus Toxoid Vaccination: No Hx Influenza Vaccination: No Hx Pneumococcal Vaccination: No - Home Medications Home Medications: Ambulatory Orders Medication Instructions Recorded MetFORMIN [glucoPHAGE] 500 mg PO DAILY 07/05/15 Metoprolol Succinate XL [Toprol XL] 25 mg PO DAILY 07/02/17 Albuterol 0.083% [Albuterol 0.083% 3 ml IH Q6H PRN 08/24/17 Inhal Bianca (2.5 mg/3 ml) UD] Aspirin [Ecotrin] 81 mg PO DAILY 08/24/17 Promethazine DM [Phenergan DM 5 ml PO Q8H PRN 08/24/17 Syrup] Cephalexin [cephalexin] 500 mg PO Q6 #28 cap 12/25/17 Methylprednisolone [Medrol Dose 4 mg PO DAILY #21 mg 12/25/17 Pack (21 tabs)] Indomethacin [Indocin] 1 tab PO TID #15 cap 07/13/18 - Allergies Allergies/Adverse Reactions: Allergies Allergy/AdvReac Type Severity Reaction Status Date / Time No Known Allergies Allergy Verified 04/07/18 20:59 Review of Systems ROS Statement: Except As Marked, All Systems Reviewed And Found Negative Physical Exam - Reviewed Nursing Documentation Reviewed: Yes Vital Signs Reviewed: Yes - Physical Exam Appears: Positive for: Well, Non-toxic, No Acute Distress Head Exam: Positive for: ATRAUMATIC, NORMAL INSPECTION, NORMOCEPHALIC Skin: Positive for: Normal Color, Warm, DRY Eye Exam: Positive for: EOMI, Normal appearance, PERRL ENT: Positive for: Normal ENT Inspection Neck: Positive for: Normal, Painless ROM Cardiovascular/Chest: Positive for: Regular Rate, Rhythm Respiratory: Positive for: CNT, Normal Breath Sounds Gastrointestinal/Abdominal: Positive for: Normal Exam, Soft Back: Positive for: Normal Inspection Extremity: Positive for: Normal ROM, Tenderness (MINIMAL ERYTHEMA NOTED MEDIAL ASPECT OF RIGHT KNEE. NO EFFUSION. ABLE TO FLEX AND EXTEND WITHOUT DIFFICULTY.) Neurologic/Psych: Positive for: Alert, Oriented - ECG O2 Sat by Pulse Oximetry: 95 - Progress ED Course And Treament: ADVISED INDOMETHACIN 50 MG TID X 3 DAYS WITH FOOD AND F/U WITH CLINIC FOR FURTHER EVALUATION ON MONDAY. Disposition - Clinical Impression Clinical Impression: Gouty arthritis - Patient ED Disposition Is Patient to be Admitted: No - Disposition Disposition: Routine/Home Disposition Time: 22:33 Condition: FAIR Prescriptions: Indomethacin [Indocin] 1 tab PO TID #15 cap Instructions: Gout, Lifestyle Changes to Manage Gout
== END 2018-07-13 23:26 | disposition home or self-care (01) ==
LOC: H.ER 21:49
DX: M10.061 Idiopathic gout, right knee (principal)

== ENCOUNTER 2018-08-29 15:12 | Emergency (ER) | payer MEDICARE, OTHER ==
[2018-08-29 15:12] VITALS: BMI 26.4
[2018-08-29 15:19] VITALS: RESP 16; TEMP 98.3
--- NOTE | 2018-08-29 16:22 | ED PDOC ---
Lower Extremity Pain/Injury <Meño Ross E - Last Filed: 08/29/18 16:20> <Shruti Lion F - Last Filed: 08/29/18 17:09> Time Seen by Provider: 08/29/18 15:22 Chief Complaint (Nursing): Lower Extremity Problem/Injury Supervising Attending Note - Attestation: I have personally seen and examined this patient.: No I have reviewed all pertinent clinical information, including history, physical exam and plan: Yes <Shruti Lion F - Last Filed: 08/29/18 17:09> Past Medical History Vital Signs: Last Vital Signs Temp 98.3 F 08/29/18 15:17 Pulse 89 08/29/18 15:17 Resp 16 08/29/18 15:17 BP 158/80 H 08/29/18 15:17 Pulse Ox 96 08/29/18 15:17 - Medical History PMH: Asthma, Bronchitis, COPD, HTN, Chronic Kidney Disease Denies: HIV - Family History Family History: States: Unknown Family Hx - Immunization History Hx Tetanus Toxoid Vaccination: No Hx Influenza Vaccination: No Hx Pneumococcal Vaccination: No <Meño Ross E - Last Filed: 08/29/18 16:20> Vital Signs: Last Vital Signs Temp 98.3 F 08/29/18 15:17 Pulse 74 08/29/18 16:34 Resp 16 08/29/18 16:34 BP 141/83 08/29/18 16:34 Pulse Ox 97 08/29/18 16:34 <Shruti Lion F - Last Filed: 08/29/18 17:09> - Home Medications Home Medications: Ambulatory Orders Medication Instructions Recorded RX: MetFORMIN [glucoPHAGE] 500 mg PO DAILY 07/05/15 RX: Metoprolol Succinate XL 25 mg PO DAILY 07/02/17 [Toprol XL] RX: Albuterol 0.083% [Albuterol 3 ml IH Q6H PRN 08/24/17 0.083% Inhal Bianca (2.5 mg/3 ml) UD] RX: Aspirin [Ecotrin] 81 mg PO DAILY 08/24/17 RX: Promethazine DM [Phenergan DM 5 ml PO Q8H PRN 08/24/17 Syrup] Cephalexin [cephalexin] 500 mg PO Q6 #28 cap 12/25/17 Methylprednisolone [Medrol Dose 4 mg PO DAILY #21 mg 12/25/17 Pack (21 tabs)] RX: Indomethacin [Indocin] 1 tab PO TID #15 cap 07/13/18 RX: Indomethacin [Indocin] 50 mg PO TID PRN #15 cap 08/29/18 - Allergies Allergies/Adverse Reactions: Allergies Allergy/AdvReac Type Severity Reaction Status Date / Time No Known Allergies Allergy Verified 04/07/18 20:59 - ECG O2 Sat by Pulse Oximetry: 96 <Meño Ross - Last Filed: 08/29/18 16:20> Disposition - Patient ED Disposition Is Patient to be Admitted: No - Disposition Disposition: Routine/Home Disposition Time: 16:15 <Meño Ross - Last Filed: 08/29/18 16:20> <Shruti Lion - Last Filed: 08/29/18 17:09> - Clinical Impression Clinical Impression: Knee pain - Disposition Referrals: [facility] [Outside] Condition: IMPROVED Additional Instructions: TAQUERIA WOODS, thank you for letting us take care of you today. Your provider was Shruti Lion MD and you were treated for LT KNEE PAIN. The emergency medical care you received today was directed at your acute symptoms. If you were prescribed any medication, please fill it and take as directed. It may take several days for your symptoms to resolve. Return to the Emergency Department if your symptoms worsen, do not improve, or if you have any other problems. Please contact your doctor or call one of the physicians/clinics you have been referred to that are listed on the Patient Visit Information form that is included in your discharge packet. Bring any paperwork you were given at discharge with you along with any medications you are taking to your follow up visit. Our treatment cannot replace ongoing medical care by a primary care provider outside of the emergency department. Thank you for allowing the [facility] team to be part of your care today. If you had an X-Ray or CT scan: A Radiologist will review the ED reading if any change in treatment is needed we will contact you. If you had a blood, urine, or wound culture: It will take several days for the results, if any change in treatment is needed we will contact you. If you had an STI test: It will take 48 hours for the results. Please call after 1 week if you have not heard back. Prescriptions: RX: Indomethacin [Indocin] 50 mg PO TID PRN #15 cap PRN Reason: Gout Pain Instructions: Knee Pain (DC) Forms: [employer] (Chinese) Print Language: SAMMARINESE
[2018-08-29 16:35] VITALS: BP 141/83; PULSE 74; O2SAT 97
== END 2018-08-29 16:35 | disposition home or self-care (01) ==
LOC: H.ER 15:12
DX: M25.562 Pain in left knee (principal)
CPT/HCPCS: 96372; 99283; J1885

== ENCOUNTER 2018-10-25 21:14 | Emergency (ER) | payer MEDICARE, OTHER ==
[2018-10-25 21:14] VITALS: BMI 26.4
[2018-10-25 21:24] VITALS: TEMP 97.5; O2SAT 96
[2018-10-25] MEDS ORDERED: Albuterol-Ipratrop 3 mg / 0.5 (3 ml) UD IH STA ×2 (21:38→22:44)
--- NOTE | 2018-10-25 21:42 | ED PDOC ---
HPI: Hypertension/Hypotension Time Seen by Provider: 10/25/18 21:27 Chief Complaint (Nursing): High Blood Pressure Chief Complaint (Provider): high blood pressure History Per: Patient History/Exam Limitations: no limitations Onset/Duration Of Symptoms: Days (2), Waxing/Waning Current Symptoms Are (Timing): Still Present Associated Symptoms: Dyspnea Additional Complaint(s): 68 y/o female history of asthma, hypertension presents for evaluation of high blood pressure x 2 days. Patient was seen at the [facility] on 10/23 and told her blood pressure was elevated and started on Lisinopril in addition to her Metoprolol daily. Patient does not feel Lisinopril is helping, took dose at 20:00 tonight and checked her blood pressure after and top number was 197 so she came to the ED. Patient reports shortness of breath but feels it could be related to her asthma. Denies headache, dizziness, extremity numbness/weakness, vision changes, chest pain, palpitations, nausea/vomiting, leg pain/swelling. Past Medical History Reviewed: Historical Data, Nursing Documentation, Vital Signs Vital Signs: Last Vital Signs Temp 97.5 F L 10/25/18 21:21 Pulse 97 H 10/25/18 21:21 Resp 16 10/25/18 21:21 BP 185/84 H 10/25/18 21:21 Pulse Ox 96 10/25/18 21:21 - Medical History PMH: Asthma, Bronchitis, COPD, HTN, Chronic Kidney Disease Denies: HIV - Family History Family History: States: Unknown Family Hx - Immunization History Hx Tetanus Toxoid Vaccination: No Hx Influenza Vaccination: No Hx Pneumococcal Vaccination: No - Home Medications Home Medications: Ambulatory Orders Medication Instructions Recorded MetFORMIN [glucoPHAGE] 500 mg PO DAILY 07/05/15 Metoprolol Succinate XL [Toprol XL] 25 mg PO DAILY 07/02/17 Albuterol 0.083% [Albuterol 0.083% 3 ml IH Q6H PRN 08/24/17 Inhal Bianca (2.5 mg/3 ml) UD] Aspirin [Ecotrin] 81 mg PO DAILY 08/24/17 Promethazine DM [Phenergan DM 5 ml PO Q8H PRN 08/24/17 Syrup] Cephalexin [cephalexin] 500 mg PO Q6 #28 cap 12/25/17 Methylprednisolone [Medrol Dose 4 mg PO DAILY #21 mg 12/25/17 Pack (21 tabs)] Indomethacin [Indocin] 1 tab PO TID #15 cap 07/13/18 Indomethacin [Indocin] 50 mg PO TID PRN #15 cap 08/29/18 - Allergies Allergies/Adverse Reactions: Allergies Allergy/AdvReac Type Severity Reaction Status Date / Time No Known Allergies Allergy Verified 10/25/18 21:20 Review of Systems ROS Statement: Except As Marked, All Systems Reviewed And Found Negative Respiratory: Positive for: Shortness of Breath Physical Exam - Reviewed Nursing Documentation Reviewed: Yes Vital Signs Reviewed: Yes - Physical Exam Appears: Positive for: Well, Non-toxic, No Acute Distress Head Exam: Positive for: ATRAUMATIC, NORMAL INSPECTION, NORMOCEPHALIC Skin: Positive for: Normal Color Eye Exam: Positive for: Normal appearance ENT: Positive for: Normal ENT Inspection Cardiovascular/Chest: Positive for: Regular Rate, Rhythm Respiratory: Positive for: Wheezing (diffuse expiratory wheezing) Gastrointestinal/Abdominal: Positive for: Normal Exam Back: Positive for: Normal Inspection Extremity: Positive for: Normal ROM Neurologic/Psych: Positive for: Alert, Oriented (x3) - Laboratory Results Result Diagrams: 10/25/18 21:45 10/25/18 21:45 - ECG ECG: Positive for: Viewed By Me (reviewed by ED attending) ECG Rhythm: Positive for: Sinus Rhythm O2 Sat by Pulse Oximetry: 96 - Progress ED Course And Treament: -cbc -cmp -troponin -bnp -ekg -duoneb x 2 Patient does not wish to get steroids for asthma at this time because it always makes her blood pressure go up On re-eval, patient states she is feeling better. Wheezing resolved Patient educated on findings, discharged with instructions to follow up PMD w ithin 2-3 days Advised to continue current medications. Lifestyle modification Return precautions given Disposition - Clinical Impression Clinical Impression: Asthma, Hypertension - Patient ED Disposition Is Patient to be Admitted: No Counseled Patient/Family Regarding: Studies Performed, Diagnosis, Need For Followup - Disposition Disposition: Routine/Home Disposition Time: 23:59 Condition: IMPROVED Instructions: Asthma in Adults, High Blood Pressure in Adults, Controlling Your Blood Pressure Through Lifestyle Forms: [employer] (Ukrainian)
[2018-10-25 21:51] LABS: BASO # 0.1 K/uL (0.0-0.2); BASO % 1.2 % (0.0-2.0); EOS # 0.5 K/uL (0.0-0.7); HEMOGLOBIN 12.6 g/dL (12.0-16.0); LYMPH # 1.9 K/uL (1.0-4.3); LYMPH % 26.2 % (20.0-40.0); MEAN CELL VOLUME 85.2 fl (81.0-99.0); MEAN CORPUSCULAR HEMOGLOBIN 27.7 pg (27.0-31.0); MEAN CORPUSCULAR HGB CONC 32.6 g/dL (33.0-37.0); MEAN PLATELET VOLUME 8.8 fl (7.2-11.7); MONO # 0.5 K/uL (0.0-0.8); MONO % 7.6 % (0.0-10.0); NEUT # 4.2 K/uL (1.8-7.0); RBC 4.55 Mil/uL (3.80-5.20); RED CELL DISTRIBUTION WIDTH 15.5 % (11.5-14.5); WHITE BLOOD COUNT 7.2 K/uL (4.8-10.8)
[2018-10-25 22:17] LABS: ALB/GLOB RATIO 1.1 (1.0-2.1); ALBUMIN 4.4 g/dL (3.5-5.0); ALT/SGPT 33 U/L (9-52); AST/SGOT 33 U/L (14-36); BLOOD UREA NITROGEN 23 mg/dl (7-17); CALCIUM 9.9 mg/dL (8.4-10.2); GFR NON-AFRICAN AMERICAN 50
[2018-10-25 22:23] LABS: B-TYPE NATRIURETIC PEPTIDE 218 pg/ml (0-900)
[2018-10-25] MEDS ORDERED: Alum-Mag Hydrox-Simethicone Susp (30 mL) PO STA (22:40)
[2018-10-26 00:39] VITALS: BP 148/84; PULSE 87; RESP 15
--- NOTE | 2018-10-26 10:38 | CARD ---
APPROVED REPORT Date of service: 10/25/2018 EKG Measurement Heart [id number] <Conclusion> Normal sinus rhythm Normal ECG
== END 2018-10-25 23:45 | disposition home or self-care (01) ==
LOC: H.ER 21:14
DX: I10 Essential (primary) hypertension (principal); J45.909 Unspecified asthma, uncomplicated